=== PATIENT | male | born 1955 | race Two or more races ===

== ENCOUNTER 2022-03-07 11:30 | Inpatient (IN) | payer OTHER ==
[~2022-03-07] VITALS: Ht 167.6 cm; Wt 77.1 kg
[2022-03-10] MEDS ORDERED: HYDRODIURIL12.5 MG (09:02)
[2022-03-10] MEDS ORDERED: SUCRALFATE1 GM (09:02)
[2022-03-10] MEDS ORDERED: TAMSULOSIN HCL0.4 MG (09:02)
[2022-03-10] MEDS ORDERED: ZYLET EYE DROPS5 ML (09:02)
[2022-03-10] MEDS ORDERED: PANTOPRAZOLE SO40 MG (09:02)
[2022-03-10] MEDS ORDERED: LOSARTAN POTASS50 MG (09:02)
[2022-03-13] MEDS ORDERED: PEPCID AC20 MG PO (10:18)
[2022-03-13] MEDS ORDERED: INTESTINEX680 M1 PO (10:19)
[2022-03-13] MEDS ORDERED: ULTRACET PO (10:19)
== END 2022-03-13 12:26 | disposition home or self-care (01) | DRG 330 ==
LOC: ADM 11:30 → SURH 03-09 06:48 → O/R 03-09 06:48 → CIR.AMB 03-09 11:30 → SURG-SUITE 03-09 11:30 → EDSTATUS 03-09 11:30 → SURG-SUITE 03-09 18:45 → SURH 03-09 22:40
PROVIDERS: ADMIT Surgery; ATTEND Surgery
PROC: 0DBP4ZZ Excision of Rectum, Percutaneous Endoscopic Approach (ICD-10-PCS; 2022-03-09)
PROC: 0DBE4ZZ Excision of Large Intestine, Percutaneous Endoscopic Approach (ICD-10-PCS; 2022-03-09)
PROC: 0DBU4ZZ Excision of Omentum, Percutaneous Endoscopic Approach (ICD-10-PCS; 2022-03-09)
PROC: 0DQ84ZZ Repair Small Intestine, Percutaneous Endoscopic Approach (ICD-10-PCS; 2022-03-09)
PROC: 3E0F7SF Introduction of Other Gas into Respiratory Tract, Via Natural or Artificial Opening (ICD-10-PCS; 2022-03-09)
PROC: 0DTN4ZZ Resection of Sigmoid Colon, Percutaneous Endoscopic Approach (ICD-10-PCS; principal; 2022-03-09 18:45)
DX: K57.20 Diverticulitis of large intestine with perforation and abscess without bleeding (principal); K91.72 Accidental puncture and laceration of a digestive system organ or structure during other procedure; R19.4 Change in bowel habit; K43.5 Parastomal hernia without obstruction or gangrene; K66.0 Peritoneal adhesions (postprocedural) (postinfection); I11.9 Hypertensive heart disease without heart failure; Z43.3 Encounter for attention to colostomy